=== PATIENT | female | born 1995 | race Caucasian/White ===

== ENCOUNTER 2020-07-01 15:28 | Emergency (ER) | payer OTHER ==
[~2020-07-01] VITALS: Ht 175.3 cm; Wt 111.1 kg
[~2020-07-01 15:28] MED LIST: DOXYCYCLINE HY100 MG PO; METROGEL55 GM TOP; NITROFURANTOIN100 MG PO; NORCO 5-325 TA1 EACH PO; PHENERGAN25 MG RC; PRENATAL GUMMI1 EACH PO; PRENATAL ONE T1 EACH PO; PSEUDOEPHEDRINE60 MG PO; ZOFRAN4 MG PO
[2020-07-01] MEDS ORDERED: ONDANSETRON ODT8 MG PO (17:46)
== END 2020-07-01 18:05 | disposition home or self-care (01) ==
LOC: ED 15:28
DX: U07.1 COVID-19 (principal); Z88.0 Allergy status to penicillin
CPT/HCPCS: 99283; C9803; U0003

== ENCOUNTER 2020-07-05 00:21 | Emergency (ER) | payer OTHER ==
[~2020-07-05] VITALS: Ht 175.3 cm; Wt 108.9 kg
[~2020-07-05 00:21] MED LIST changes: +ONDANSETRON ODT8 MG PO
--- OUTSIDE RECORDS SUMMARY | 2020-07-05 00:58 | XMS ---
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 Virgie has no Care Guidelines for this patient. [place] VISIT COUNT (12 MO.) 2 [facility] TOTAL 2 NOTE: Visits indicate total known visits. ED/C VISIT TRACKING (12 MO.) 07/05/2020 00:[address] [facility] [place] TYPE: Emergency COMPLAINT: - VOMITING 07/01/2020 15:30 [facility] [place] TYPE: Emergency COMPLAINT: - FEVER,CHILLS,LOST OF TASTE/SMELL DIAGNOSES: - Allergy status to penicillin - COVID-19 - Cough INPATIENT VISIT TRACKING (12 MO.) No inpatient visits to display in this time frame [email or web address]
[2020-07-05] MEDS ORDERED: PROMETHAZINE HC25 M1 PO (02:20)
== END 2020-07-05 03:29 | disposition home or self-care (01) ==
LOC: ED 00:21
DX: U07.1 COVID-19 (principal); K29.00 Acute gastritis without bleeding; Z88.0 Allergy status to penicillin
CPT/HCPCS: 80053; 84703; 85025; 96374; 99284-25; J2550; J7030

== ENCOUNTER 2020-07-08 22:00 | Inpatient (IN) | payer OTHER ==
[~2020-07-08] VITALS: Ht 175.3 cm; Wt 103.4 kg
[~2020-07-08 22:00] MED LIST changes: +PROMETHAZINE HC25 M1 PO
--- OUTSIDE RECORDS SUMMARY | 2020-07-08 22:02 | XMS ---
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 Care History Medical/Surgical 07/05/2020 [facility] - PATIENT IS [facility] ELIGIBLE, \T\middot;\T\nbsp; PLEASE REFER PATIENT TO [facility] FOR NON EMERGENT MEDICAL NEEDS. \T\middot;\T\nbsp; [facility] CAN SEE PATIENTS SAME DAY FOR APTS IF PATIENT CALLS FIRST THING IN THE MORNING. E.D. VISIT COUNT (12 MO.) 3 [facility] TOTAL 3 NOTE: Visits indicate total known visits. ED/UCC VISIT TRACKING (12 MO.) 07/08/2020 22:00 [facility] [place] TYPE: Emergency COMPLAINT: - FLU SYMPTOMS 07/05/2020 00:56 [facility] [place] TYPE: Emergency COMPLAINT: - VOMITING 07/01/2020 15:30 [facility] [place] TYPE: Emergency COMPLAINT: - FEVER,CHILLS,LOST OF TASTE/SMELL DIAGNOSES: - Allergy status to penicillin - COVID-19 - Cough INPATIENT VISIT TRACKING (12 MO.) No inpatient visits to display in this time frame [email or web address]
--- NOTE | 2020-07-09 01:04 | NUR ---
0020 PATIENT ARRIVED TO THE UNIT VIA STRETCHER ON 3L NC. PATIENT IS ALERT. MOVES TO BED WITHOUT ASSIST. RR 30's. HR 90'S AT REST, INCREASED TO 130'S WITH ACTIVITY. PATIENT HAS DRY COUGH BUT REPORTS GETTING LARGE AMOUNTS OF PHLEM UP OCCATIONALLY. LUNG SOUNDS ARE DIMINISHED, POOR AIR MOVEMENT THROUGHOUT. NO NAUSEA AT THIS TIME. ORAL TEMP 99.0 F. PATIENT FEELS WARM. PRN TYLENOL GIVEN. PATIENT ALSO HAS 6/10 SUBSTERNAL PAIN, INCREASED WHEN COUGHING. PRN ROBITUSSIN PROVIDED. IV REMDEZIVIR STARTED, IV SITE WNL.
--- NOTE | 2020-07-09 01:57 | NUR ---
IV INFUSION FINISHED, SITE WNL. PATIENT UP TO THE BSC. PATIENT TITRATED TO 4L NC FOR TRANSFER. PATIENT TOLERATED OKAY, INCREASED SOB. ENCOURAGED PATIENT TO PRONE AND ASSISTED HER TO LAY ON HER LEFT SIDE. ORAL TEMP 99.4F. PATIENT VOIDED 200 MLS UBALDO COLORED URINE.
--- NOTE | 2020-07-09 02:20 | NUR ---
PT UP TO BSC, THOUGHT NEEDED TO HAVE BM BUT JUST PASSED GAS. IS SOB WITH THIS MINIMAL EXERTION AND RR EVEN AT REST IS UPPER 30'S.
--- NOTE | 2020-07-09 03:08 | NUR ---
PATIENT REPORTS 9/10 ABD PAIN IN EPIGASTRIC AREA. PRN ZOFRAN AND DILAUDID PROVIDED. PATIENT TOLERATED WELL. RESTING IN BED WITH COOL WASH CLOTH TO FOREHEAD. CALL LIGHT IN HAND. RR 30'S. O2 SAT 95% ON 4L NC.
--- NOTE | 2020-07-09 03:40 | NUR ---
PATIENT HAVING INCREASED ABD PAIN, 10/10 SHARP ACROSS UPPER ABD AND INTO HER BACK. SPOKE WITH MD. STAT ABD CT ORDERED. PATIENT TAKEN TO CT BY THIS RN. PRN DILAUDID GIVEN. PATIENT TOLERATED CT WELL. RETURNED TO THE ROOM. VS STABLE. 4L NC. PATIENT FEELS HOT, ORAL TEMP WNL. COOL WASH CLOTH PLACED ON HER HEAD.
--- NOTE | 2020-07-09 04:56 | NUR ---
PATIENT RESTING IN BED. VS STABLE. CONTINUES TO REPORT PAIN IN ABD. DENIES PRN PAIN MEDS AT THIS TIME. RR 20'S AND HR 80'S.
--- NOTE | 2020-07-09 06:13 | NUR ---
PATIENT RESTING IN BED. REPORTS IMPROVED PAIN IN ABD. RR 20'S. O2 SAT 94% ON 4L NC. HR 90'S. PATIENT DENIED ANY NEEDS AT THIS TIME. CALL LIGHT IN REACH.
--- NOTE | 2020-07-09 07:57 | EKG ---
[facility] [address] [facility] [address] [place] [address] Signed Normal sinus rhythm Poor R wave progression anterior leads Abnormal ECG No previous ECGs available Confirmed by RAFY ESTRADA MD ([id number]) on 07/09/2020 7:57:07 AM Electronically Signed By: RAFY ESTRADA MD 07/09/20 0757 PATIENT NAME: MARCELO CHAPMAN Electrocardiogram DATE OF : [birth year] PHYSICIAN: RAFY ESTRADA MD REPORT #: [id number] REPORT IS CONFIDENTIAL AND NOT TO BE RELEASED WITHOUT AUTHORIZATION
--- NOTE | 2020-07-09 08:30 | NUR ---
PT UP AND AMBULATED TO THE BATHROOM WITH ONLY STAND BY ASSIST. PT GIVEN ALL SUPPLIES FOR AM CARES, AND ORAL CARE. PT ABLE TO CHANGE OWN GOWN. ALL LINENS CHANGED ON THE BED. PT AMBULATES BACK TO BED. ALL VITALS ARE WNL AT THIS TIME, PT REMAINS ON 02 VIA NC DURING ACTIVITY, AND DENIES SOB. PT REPORTS 4/10 ABD PAIN, 650 MG TYLENOL GIVEN. PT IV SITE IS INTACT, NO REDNESS OR SWELLING NOTED, FLUSHES EASILY. BREAKFAST ORDERED FOR PT. CALL LIGHT IS WITH IN REACH.
--- NOTE | 2020-07-09 11:35 | NUR ---
PRONE ON BELLY - IN PT ROOM TO HAVE HER PRONE ON TO HER BELLY. PT UP TO THE BATHROOM FIRST TO VOID. PT THEN BACK TO BED ASSISTED TO PRONE ON HER BELLY, O2 SATS WENT FROM 88% TO 98-100% ON 4L VIA NASAL CANULA. O2 TURNED DOWN TO 2L PT SAT IS 97%. PT STATES SHE IS COMFORTABLE LIKE THIS, CALL LIGHT IS WITHIN REACH.
--- NOTE | 2020-07-09 12:40 | NUR ---
PT IV SITE IS INTACT, NO REDNESS OR SWELLING NOTED, PT DENIES PAIN WITH FLUSH. PT DENIES NEED TO USE THE COMMODE OR BATHROOM AT THIS TIME. DENIES PAIN AT THIS TIME. PT ALSO DENIES NAUSEA. LUNCH HAS BEEN SERVED.
--- NOTE | 2020-07-09 12:45 | NUR ---
WENT INTO PT ROOM, SHE HAS JUST STOPPED PRONING ON HER BELLY. 02 TURNED UP TO 4L FROM 2L TO MAINTAIN O2 SATS IN THE SITTING POSITION.
--- NOTE | 2020-07-09 16:20 | NUR ---
educated pt on the importance of proning everyday and to use her incentive spirometer at least 10 times and hour. pt is agreable to this. pt vitals are wnl, remains on 4L O2 via nc. pt denies any nausea, reports some chest thightness with breathing, frequent coughs as well. cough meds given. dinner brought into pt and fresh water, call light is within reach. iv site is intact, no redness or swelling is noted, pt denies pain with flush.
--- NOTE | 2020-07-09 21:30 | NUR ---
AWAKE WATCHING TV. STATES DOES HAVE SOME ABD PAIN BUT DECLINED OFFER OF TYLENOL. ENCOURAGED TO USE IS, ONLY ABLE TO MOVE 250ML. BREATH TONES DIM BASES ON RT AND DIM THROUOUGHT ON LEFT. OCC HARSH COUGH. GIVEN HS MUCINEX. PT STATES SHE IS ABLE TO PRONE ON OWN. USES BEDSIDE COMMODE ON OWN, DID HAVE SCANT BM WITH URINE.
--- NOTE | 2020-07-10 00:05 | NUR ---
SATS 95-96% PT SLEEPING ON RT SIDE, ALMOST ON STOMACH..
--- NOTE | 2020-07-10 01:31 | NUR ---
SATS NOTED TO 88%, CHECKED PT AND 02 OUT OF NOSE, REPLACED. PT HAS NOT C/O AT THIS TIME.
--- NOTE | 2020-07-10 03:15 | NUR ---
SLEEPING, LAYS PARTIALLY ON STOMACH AT TIMES.
--- NOTE | 2020-07-10 06:00 | NUR ---
IN TO ASSESS PT AND DRAW LABS. SATS 93-95% WHILE ON BACK. BREATH TONES ESS UNCHANGED. GETS UP TO BSC ON OWN. CONT TO HAVE OCC HARSH COUGH.
--- NOTE | 2020-07-10 07:34 | NUR ---
report received. care of patient assumed at this time. Pt is awake in bed on cell phone. plan to order own breakfast. spo2 = 94 percenton 4 l nc. denies any needs at this time.
--- NOTE | 2020-07-10 08:54 | NUR ---
assessment and medication administration completed. pt restin in bed. complains of productive, hacking cough. lungs sounds diminished in the bases, with fine crackles noted in the right lower air space. IV remdesivir infusing. Pt complains IV site in right AC is itching. no noted redness, site flushes well. will monitor. pt denies pain. plan of care for day established at this time.
--- NOTE | 2020-07-10 09:28 | NUR ---
RECEIVED PHONE CALL FROM GAGE RN [facility]. SHE IS AWARE PATIENT IS HOSPITALIZED, THEY AND [facility] NEED TO SPEAK WITH PATIENT OR A FAMILY MEMBER. DISCUSSED I HAVE NOT SEEN OR SPOKE WITH PATIENT YET AND I CAN TRANSFER HER TO ICU NURSES STATION TO SEE IF PATIENT CAN TAKE CALLS. SHE IS FINE WITH THIS, PHONE CALL TRANSFERRED. 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
--- NOTE | 2020-07-10 09:32 | NUR ---
pt awake on phone. set up for breakfast. prn medication for cough given (see emar). IV potassium infusing. call light within reach. no further needs at this time.
--- NOTE | 2020-07-10 10:30 | NUR ---
pt ambulated to the bathroom to do AM cares and void. Heart rate up to 140 but oxygen saturations maintained in the mid 90s on 4 L NC with ambulation and exertion. pt now laying on right side. Potassium continues to infuse. call light within reach. no further needs at this time.
--- NOTE | 2020-07-10 12:09 | NUR ---
PT ASSESSMENT COMPLETED. PT RESTINGON RIGHT SIDE. DENIES PAIN OR SHORTNESS OF BREATH. LUNGS SOUND DIMINISHED WITH FINE CRACKLES NOTED IN THE RIGHT BASE. IV POTASSIUM INFUSING. SLOWER RATE WELL TOLERATED BY PT. CALL LIGHT WITHIN REACH. NO FURTHER NEEDS AT THIS TIME.
--- NOTE | 2020-07-10 14:17 | NUR ---
DUE TO PRECAUTIONS, I AM UNABLE TO VISIT WITH PT. WILL BE AVAILABLE NEEDED
--- NOTE | 2020-07-10 14:22 | NUR ---
pt up to bathroom. heart rate up into the 120s. pt back in bed. Hacking cough noted with activity. Pt denies need for PRN medications at this time. back in bed. call light within reach. No further needs at this time.
--- NOTE | 2020-07-10 17:52 | NUR ---
IN ROOM TO CHECK ON PATIENT. OXYGEN SATURATIONS MAINTAINED IN THE MID 90S ON 3 L NC. PT DENIES PAIN OR DISCOMFORT. ORDERED DINNER AT THIS TIME. CALL LIGHT WITHIN REACH. NO FURTHER NEEDS AT THIS TIME.
--- NOTE | 2020-07-10 20:35 | NUR ---
SHIFT REPORT RECEIVED FROM ADELA DELACRUZ. ASSESSMENT COMPLETED AT THIS TIME. PT WAS PRONED/SLEEPING, WOKE EASILY WHEN I ENTERED ROOM. DENIES PAIN. LUNGS DIM BUT CLEAR, 3L O2 VIA NC IN PLACE. HR REGULAR. BOWEL TONES ACTIVE, DENIES NAUSEA. SKIN GROSSLY INTACT. IV INTACT AND SALINE LOCKED. BSC EMPTIED, PT INDEPENDENT IN ROOM. CALL LIGHT WITHIN REACH. PLAN OF CARE DISCUSSED WITH PT, QUESTIONS ANSWERED. NO FURTHER REQUESTS AT THIS TIME.
--- NOTE | 2020-07-10 22:07 | NUR ---
PT APPEARS TO BE ASLEEP AT THIS TIME, NO APPARENT DISTRESS. RESPIRATIONS EVEN AND UNLABORED, 3L O2 VIA NC IN PLACE. HR:50, RR:15, SPO2:97%.
--- NOTE | 2020-07-11 00:25 | NUR ---
PT WAS SLEEPING IN PRONE POSITION WHEN I ENTERED ROOM, WOKE UP EASILY. DENIES PAIN. LUNGS REMAIN CLEAR/DIM, OXYGEN TITRATED TO 2L FOR SPO2 97% ON 3L. HR REGULAR. BOWEL TONES ACTIVE, DENIES NAUSEA. IV PATENT, INTACT. PRN ROBITUSSIN GIVEN FOR COUGH. BSC EMPTY AT THIS TIME. VITAL SIGNS STABLE. PT DENIES FURTHER REQUESTS, CALL LIGHT AND BELONGINGS WITHIN REACH.
--- NOTE | 2020-07-11 02:30 | NUR ---
PT APPEARS TO BE ASLEEP, NO APPARENT DISTRESS. RESPIRATIONS EVEN AND UNLABORED, 2L O2 REMAINS INPLACE. HR:46, RR:20, SPO2:98%.
--- NOTE | 2020-07-11 04:45 | NUR ---
ASSESSMENT COMPLETED, UNCHANGED FROM PREVIOUS. PT DENIES SOB AT REST, OXYGEN REMAINS AT 2L, LUNGS CONTINUE TO SOUND CLEAR/DIM. PRN ROBITUSSIN GIVEN FOR COUGH. BLOOD DRAWN FOR MORNING LABS, PT TOLERATED WELL. PT DENIES REQUESTS AT THIS TIME, CALL LIGHT WITHIN REACH.
--- NOTE | 2020-07-11 06:18 | NUR ---
BSC EMPTIED OF 350ML VERY CONCENTRATED URINE. PT RESTING IN BED, DENIES NEEDS AT THIS TIME. HR:65, RR:21, SPO2:98% ON 2L. CALL LIGHT WITHIN REACH.
--- NOTE | 2020-07-11 08:00 | NUR ---
ASSESSMENT DONE. UPON IRRIGATING IV SITE WITH NORMAL SALINE, LEAKING NOTED AT SITE. NEW IV SITE STARED TO L HAND SITE. HAS LOOSE OCC PRODUCTIVE COUGH. O2 DECREASED TO 1 LITER O2 SAT 99. PT IS UNDERSTANDING OF POC FOR THE DAY.
--- NOTE | 2020-07-11 09:00 | NUR ---
TOOK BREAKFAST WELL. IS W/O C/O. TALKING ON PHONE, NO RESP DISTESS NOTED.
--- NOTE | 2020-07-11 09:11 | NUR ---
MED REC COMPLETE
--- NOTE | 2020-07-11 12:00 | NUR ---
ASSESSMENT DIFFERED PATIENT IN ASLEEP.
--- NOTE | 2020-07-11 13:01 | NUR ---
SLEEPING, NO DISTRESS NOTED.
--- NOTE | 2020-07-11 13:30 | NUR ---
took lunch well. O2 TO RA. O2 SAT 94. DENIES SHORTNESS OF BREATH. UP TO BR TO BRUSH TEETH, SPONGE BATH GIVEN. WITH MOVEMENT HR TO 120 WITH MOVEMENT. DENIES DIZZINESS. BACK TO BED W/O INCIDENT.
--- NOTE | 2020-07-11 14:49 | NUR ---
ADELA PAN INFORMED ME THAT SHE HAS NOTICED SOME IMPROVEMENT. DUE TO PRECAUTIONS, UNABLE TO VISIT PT. WILL FOLLOW
--- NOTE | 2020-07-11 15:11 | NUR ---
CANNOT VISIT ROOM DUE TO COVID GUIDELINE. CALLED STAFF TO SEE IF PATIENT COULD TALK BY ROOM PHONE. THEY STATED PATIENT IS RESTING AND THEY DO NOT THINK SHE SHOULD BE DISTURBED AT THIS TIME. CM WILL FOLLOW LATER.
--- NOTE | 2020-07-11 16:00 | NUR ---
TELE #4 APPLIED. [facility]
--- NOTE | 2020-07-11 16:25 | NUR ---
TO MED-SURG VIA BED. REPORT TO Brittaney VALDEZ RN.
--- NOTE | 2020-07-11 16:36 | NUR ---
PT ARRIVED TO MED SURG UNIT FROM CCU VIA STRETCHER @ [id number]. BEDSIDE REPORT RECEIVED FROM MAXIM CHAPMAN. PT WEANED OFF OF O2 THIS MORNING. SATING 95% ON ROOM AIR. UNABLE TO AUSCULTATE LUNGS OR HR D/T PAPR BUT MAXIM REPORTS LUNGS ARE CLEAR AND PT HAS OCCASIONAL COUGH. URINE OUTPUT HAS BUT BARELY ADEQUATE. PT ENCOURAGE TO INCREASE PO INTAKE TOLERATED TO PREVENT DEHYDRATION. PT DENIES SOB, PAIN OR N/V AT THIS TIME. PT IS ABLE TO AMBULATE INDEPENDENTLY IN THE ROOM. SELF-PRONES. CALL LIGHT IS WITHIN REACH AND PT WILL CALL FOR DINNER WHEN READY. 20 MEQ OF POTASSIUM GIVEN. NO OTHER NEEDS AT THIS TIME.
--- NOTE | 2020-07-11 18:25 | NUR ---
PT UP AND AMBULATING IN ROOM. EATING DINNER IN BED NOW. CALL LIGHT IS IN REACH. NO OTHER NEEDS AT THIS TIME.
--- NOTE | 2020-07-11 18:58 | NUR ---
PATIENT SITTING IN BED TALKING ON PHONE AND EATING DINNER. CUP FULL OF WATER. CALL LIGHT IN REACH. NO FURTHER NEEDS AT THIS TIME.
--- NOTE | 2020-07-11 19:15 | NUR ---
[facility] RE[facility]. pt AWAKE AND RESTING IN BED, NO DISTRESS NOTED. RR EVEN AND UNLABORED. CALL LIGHT IN REACH.
--- NOTE | 2020-07-11 20:51 | NUR ---
VS AND I&O'S COMPLETE, HAT PROVIDED TO BETTER MEASURE UO. pT DENIES PAIN AND NAUSEA. TELE#4. pt DENIES CHEST PAIN AND SOB. ROOM CLEANED AND WHITE BOARD UPDATED. FRESH APPLE JUICE PROVIDED. NO ADDITIONAL NEEDS, CALL LIGHT IN REACH. pt INDEPENDENT IN THE ROOM.
--- NOTE | 2020-07-11 23:46 | NUR ---
pt UP INDEPENDENTLY IN ROOM, HR UP TO 140'S BRIEFLY THEN RETURNED SINUS RHYTHM, HR 60'S. O2 SATS SUSTAINING IN MID TO UPPER 90'S ON RA. pt DENIES NEEDS, BACK IN BED AND RESTING. CALL LIGHT IN REACH.
--- NOTE | 2020-07-12 01:50 | NUR ---
pt RESTING IN BED WITH EYES CLOSED, RR EVEN AND UNLABORED. REMAINS ON RA, O2 SAT 96%. HR 70'S, SINUS RHYTHM. CALL LIGHT REMAINS WITHIN EASY REACH.
--- NOTE | 2020-07-12 02:30 | NUR ---
SPOKE TO CCU RN CALLIE EARLIER THIS SHIFT REGARDING pt's TELE READING STATING "IRREGULAR". PER CCU ADELA LEDESMA, RHYTHM IS NOT AFIB AND THIS WAS HAPPENING THE PREVIOUS NIGHT WHEN pt's HR SLOWS DOWN. DR ESTRADA AT RN STATION AND AWARE. NO NEW ORDERS.
--- NOTE | 2020-07-12 03:04 | NUR ---
ASSESSMENT COMPLETE, NO NEW CHANGES OR CONCERNS REPORTED. pt RESTING IN BED, URINE HAT EMPTIED. pt REMAINS ON RA, DENIES SOB AND CHEST PAIN. TELE#[address], SINUS RHYTHM, HR 70'S. pt INDEPENDENT IN THE ROOM, DENIES ADDITIONAL NEEDS. CALL LIGHT IN REACH.
--- NOTE | 2020-07-12 06:05 | NUR ---
VSS AND I&O'S COMPLETE. LAB DRAW COMPLETE AND SENT TO LAB, pt TOLERATED WELL. TOURNIQUET REMOVED. pt DENIES PAIN, INTERMITTENT COUGHING NOTED. PRN COUGH MEDICATION OFFERED, pt KINDLY DECLINED. NO FURTHER NEEDS, CALL LIGHT IN REACH.
--- NOTE | 2020-07-12 09:00 | NUR ---
Admin zofran 4mg IVP for reports of nausea after eating breakfast.
--- NOTE | 2020-07-12 09:30 | NUR ---
rOBITUSSIN 5ML ADMIN FOR REPORTS OF COUGH
--- NOTE | 2020-07-12 10:05 | NUR ---
Patient resting in bed, respirations even and non labored. Pt reports her nausea has subsided. Pt denies sob. Notable cough; pt reports thick yellow/white mucus production. Pt states she feels as though her symptoms are improved and would like to go home today. No needs at this time. Call light within reach.
[2020-07-12] MEDS ORDERED: DEXAMETHASONE4 MG PO (10:39)
--- NOTE | 2020-07-12 13:54 | NUR ---
PT DUE TO DC TODAY-MUCH IMPROVED. STILL UNABLE TO VISIT DUE TO RESTRICTIONS
== END 2020-07-12 12:15 | disposition home or self-care (01) | DRG 177 ==
LOC: ED 22:00 → CCU 07-09 00:07 → MS 07-10 11:07 → CCU 07-10 11:08 → MS 07-11 16:20
PROVIDERS: ADMIT Internal Medicine; ATTEND Internal Medicine
PROC: XW033E5 Introduction of Remdesivir Anti-infective into Peripheral Vein, Percutaneous Approach, New Technology Group 5 (ICD-10-PCS; principal; 2020-07-09)
DX: U07.1 COVID-19 (principal); J12.82 Pneumonia due to coronavirus disease 2019; R09.02 Hypoxemia; E87.6 Hypokalemia; R11.2 Nausea with vomiting, unspecified; E66.01 Morbid (severe) obesity due to excess calories; Z88.0 Allergy status to penicillin; Z68.33 Body mass index [BMI] 33.0-33.9, adult
CPT/HCPCS: 71045; 74160; 80053; 83615; 83735; 84484; 84703; 85025; 85651; 93005; 93010; 99285-25; J1100; J1170; J1650; J2405; J3480; J7050; J7060; J8540

== ENCOUNTER 2022-04-29 20:07 | Emergency (ER) | payer OTHER ==
[~2022-04-29] VITALS: Ht 175.3 cm; Wt 114.0 kg
[~2022-04-29 20:07] MED LIST changes: +DEXAMETHASONE4 MG PO
[2022-04-30] MEDS ORDERED: CEPHALEXIN500 M1 PO (00:24)
== END 2022-04-30 00:46 | disposition home or self-care (01) ==
LOC: ED 20:07
DX: J02.9 Acute pharyngitis, unspecified (principal); R50.9 Fever, unspecified; Z88.0 Allergy status to penicillin; Z20.822 Contact with and (suspected) exposure to COVID-19
CPT/HCPCS: 36415; 80053; 81001; 84703; 85025; 87502; 87880; A9270; J0696; J2405; J7030; U0003

== ENCOUNTER 2025-04-19 03:42 | Emergency (ER) | payer OTHER ==
[~2025-04-19] VITALS: Ht 175.3 cm; Wt 91.4 kg
[~2025-04-19 03:42] MED LIST changes: +CEPHALEXIN500 M1 PO; +LACTULOSE10 GM/15 M PO; +REGLAN10 MG PO
[2025-04-19 04:18] LABS: BASOPHILS 0.6 % (0.1-1.2); EOSINOPHILS 3.3 % (0.7-5.8); LYMPHOCYTES 28.8 % (19.3-51.7); MCH 30.0 PG (25.6-32.2); MCHC 34.5 g/dL (32.2-35.5); MCV 87.0 fL (79.4-94.8); MONOCYTES 5.5 % (4.7-12.5); NEUTROPHILS 61.6 % (34.0-71.1); RBC 4.23 M/uL (3.93-5.22)
[2025-04-19 04:39] LABS: ABO A; RH POSITIVE
[2025-04-19 04:54] LABS: BLOOD/HGB, URINE MODERATE (Negative); KETONE, URINE NEGATIVE (Negative); LEUK ESTERASE, URINE NEGATIVE (negative); NITRITE, URINE NEGATIVE (negative)
[2025-04-19 04:55] LABS: ALT (SGPT) 15.0 U/L (14-59); AST (SGOT) 11.0 U/L (15-37); GLOMERULAR FILTRATION RATE,EST 131.0 mL/min (>60); PROTEIN, TOTAL 6.5 g/dL (6.4-8.2); UREA NITROGEN 7.0 mg/dL (7-18)
[2025-04-19 04:59] LABS: EPITHELIAL CELLS, URINE SQUAMOUS 1+ /lpf (0-1+)
[2025-04-19 05:00] LABS: BACTERIA, URINE RARE /hpf (negative); CASTS, URINE NONE SEEN \\lpf; CRYSTALS, URINE NONE SEEN (0-1+); REFLEX CULTURE, URINE No (No)
[2025-04-19] MEDS ORDERED: ONDANSETRON 4 MG TAB ODT SL ONE (05:30)
[2025-04-19] MEDS ORDERED: ONDANSETRON ODT4 MG PO (05:42)
[2025-04-19] MEDS ORDERED: ONDANSETRON 4 MG HOME.PACK SL ONE (05:45)
[2025-04-19 05:52] VITALS: BP 124/84
== END 2025-04-19 05:54 | disposition home or self-care (01) ==
LOC: ED 03:42
PROVIDERS: Internal Medicine
DX: O20.8 Other hemorrhage in early pregnancy (principal); Z3A.01 Less than 8 weeks gestation of pregnancy; Z86.16 Personal history of COVID-19; Z88.0 Allergy status to penicillin
CPT/HCPCS: 36415; 76801; 76817; 80053; 81001; 84702; 85025; 86900; 86901; 99284-25; A9270

== ENCOUNTER 2025-07-04 21:14 | Emergency (ER) | payer OTHER ==
[~2025-07-04] VITALS: Ht 175.3 cm; Wt 91.4 kg
[~2025-07-04 21:14] MED LIST changes: +ONDANSETRON ODT4 MG PO
[2025-07-04] MEDS ORDERED: SODIUM CHLORIDE 0.9% 500 ML IV ONE (21:30)
[2025-07-04 22:01] LABS: BASOPHILS 0.3 % (0.1-1.2); BLOOD/HGB, URINE NEGATIVE (Negative); EOSINOPHILS 1.2 % (0.7-5.8); KETONE, URINE SMALL (Negative); LEUK ESTERASE, URINE NEGATIVE (negative); LYMPHOCYTES 9.2 % (19.3-51.7); MCH 30.5 PG (25.6-32.2); MCHC 35.0 g/dL (32.2-35.5); MCV 87.1 fL (79.4-94.8); MONOCYTES 6.0 % (4.7-12.5); NEUTROPHILS 82.9 % (34.0-71.1); NITRITE, URINE NEGATIVE (negative); RBC 4.03 M/uL (3.93-5.22)
[2025-07-04 22:33] LABS: ALT (SGPT) 14.0 U/L (14-59); AST (SGOT) 8.0 U/L (15-37); GLOMERULAR FILTRATION RATE,EST 130.0 mL/min (>60); PROTEIN, TOTAL 7.0 g/dL (6.4-8.2); UREA NITROGEN 5.0 mg/dL (7-18)
[2025-07-04] MEDS ORDERED: POTASSIUM CHLORIDE 10 MEQ TABCR PO ONE (23:00)
[2025-07-04] MEDS ORDERED: MAGNESIUM SULFATE 2 GM/50 ML BAG IV ONE (23:00)
[2025-07-04 23:02] LABS: INFLUENZA B NAA NEGATIVE (NEGATIVE); RESPIRATORY SYNCYTIAL VIR NAA NEGATIVE (NEGATIVE)
[2025-07-04] MEDS ORDERED: ONDANSETRON ODT8 MG PO ×2 (23:28→23:36)
[2025-07-04] MEDS ORDERED: PAXLOVID 300/11 EACH PO ×2 (23:28→23:36)
[2025-07-04] MEDS ORDERED: CYCLOBENZAPRINE10 MG PO ×2 (23:29→23:36)
[2025-07-04] MEDS ORDERED: ONDANSETRON 4 MG HOME.PACK SL ONE (23:30)
[2025-07-04] MEDS ORDERED: CYCLOBENZAPRINE HCL 10 MG HOME.PACK PO ONE (23:30)
[2025-07-04] MEDS ORDERED: PROMETHAZINE HCL 25 MG HOME.PACK PO ONE (23:30)
[2025-07-05 00:18] VITALS: BP 124/81
== END 2025-07-05 00:05 | disposition home or self-care (01) ==
LOC: ED 21:14
PROVIDERS: Family Medicine
DX: U07.1 COVID-19 (principal); Z88.0 Allergy status to penicillin
CPT/HCPCS: 36415; 80053; 81003; 83735; 85025; 87502; 96365; 96375; 99284-25; A9270; J2405; J3475; J7040; U0002